=== PATIENT | male | born 1975 | race Caucasian/White ===

== ENCOUNTER → 2018-01-28 | Day surgery (SDC) | payer OTHER ==
--- NOTE | 2018-01-25 10:57 | Diagnostic Imaging Report ---
PROCEDURE: Frontal and lateral views of the chest. COMPARISON: None. INDICATIONS: PREOPERATIVE CHEST XRAY FOR KNEE SURGERY FINDINGS: Lines/tubes: None. Lungs: The lungs are well inflated and clear. There is no evidence of pneumonia or pulmonary edema. Pleura: There is no pleural effusion or pneumothorax. Heart and mediastinum: The heart and the mediastinum are normal. Bones: No acute bony abnormality. IMPRESSION: 1. No acute cardiopulmonary disease. Dictated by: Chito Berumen M.D. on 01/25/2018 at 11:01 Electronically approved by: Chito Berumen M.D. on 01/25/2018 at 11:01
[~2018-01-28] MED LIST: BUPIVACAINE HCL 0.5% INJ 30 ML VIAL INJ ONE; CEFAZOLIN SOD 1 GM VIAL ONE; DEXAMETHASONE SOD PHOS INJ 4 MG/ML VIAL ONE; DULERA 200 MCG/13 GM INH; DYMISTA NASAL S23 GM NS; FENTANYL CITRATE/PF 100MCG/2 ML INJ ONE; KETOROLAC TROMETHAMINE 30 MG/ML VIAL ONE; LAMOTRIGINE100 MG PO; LIDOCAINE HCL 2% LOCAL INJ 5 ML SDV VIAL INJ ONE; MIDAZOLAM HCL 2 MG/2 ML VIAL ONE; ONDANSETRON HCL INJ 2 MG/ML VIAL ONE; PEPCID20 MG PO; PROPOFOL IV EMULSION 10 MG/ML 20 ML VIAL ONE; REGLAN PO; SEVOFLURANE INHAL SOLN 250 ML PEN BTL ONE; VENTOLIN HFA18 GM IH
--- NOTE | 2018-01-28 08:42 | Operative Report ---
DATE OF PROCEDURE: January 28, 2018 TRASH MAN: Dawson Goodwin PA-C The patient was brought to the operating room for induction of anesthesia. Throughout this case, my PA's assistance was necessary for retraction of soft tissue and positioning of the extremity. This allows for efficient and technically successful execution of the operation and is considered medically necessary. PREOPERATIVE DIAGNOSIS: Mass, right leg. POSTOPERATIVE DIAGNOSIS: Mass, right leg. PROCEDURE: Excisional biopsy, right leg mass. INDICATIONS: The patient is a 42-year-old gentleman who has a several-year history of a soft mass on the upper inner aspect of his right leg. He feels that this is getting slightly bigger. He would like to have this excised. The risks and benefits have been discussed. He states he understands and wishes to proceed. DESCRIPTION OF PROCEDURE: The patient was brought to the operating room and placed under general anesthetic. His right lower extremity was prepped and draped in a sterile manner. A preoperative time out was performed. The extremity was exsanguinated and a proximal tourniquet was inflated to 300 mmHg. A vertical incision was made over the medial aspect of the mass. This was carefully dissected out. This was violated and had the contents consistent with a dermal inclination cyst. The sac of the cyst was circumferentially excised and sent to pathology. The wound was thoroughly irrigated. Three mL of 0.5% Marcaine without epinephrine were injected around the incision. The incision was closed with subcuticular Vicryl, Mastisol and Steri-Strips. He was placed into a sterile bandage. He was extubated and transported to the recovery room in stable condition. Job#: [id number] SUBHA
== END | disposition home or self-care (01) ==
LOC: OR 05:17
PROVIDERS: ATTEND Specialist
DX: L72.0 Epidermal cyst (principal); G47.33 Obstructive sleep apnea (adult) (pediatric); J45.909 Unspecified asthma, uncomplicated; G40.909 Epilepsy, unspecified, not intractable, without status epilepticus; Z01.810 Encounter for preprocedural cardiovascular examination; Z01.818 Encounter for other preprocedural examination
CPT/HCPCS: 27327; 71046; 88304; 93005; J0690; J1100; J1885; J2001; J2250; J2405